=== PATIENT | male | born 2000 | race Caucasian/White ===

== ENCOUNTER 2022-04-25 11:29 | Emergency (ER) | payer SELFPAY ==
[~2022-04-25] VITALS: Ht 167.6 cm; Wt 63.5 kg
--- NOTE | 2022-04-25 11:40 | NUR ---
[id number] FOR "DOG BITE" . LACERATION ON LATERAL ASPECT OF LEFT KNEE NOTED WITH MINIMAL BLEEDING. 3-4CM IN LENGTH APPEARS TO BE WELL APPROXIMATED. 6/10 PAIN. PT BREATHING EVEN AND UNLABORED. AWAITING MD ORDERS.
[2022-04-25] MEDS ORDERED: TDAP [DIPH/PERTUSSIS/TET] 0.5 ML VIAL IM ONE ×2 (13:30→13:37)
[2022-04-25] MEDS ORDERED: AMOX-430 PO (14:21)
--- NOTE | 2022-04-25 14:38 | NUR ---
Patient discharged to home in stable condition. Written and verbal after care instructions given. Patient verbalizes understanding of instruction.
[2022-04-25 14:40] VITALS: BP 106/74
== END 2022-04-25 14:41 | disposition home or self-care (01) ==
LOC: ER 11:31
DX: S81.851A Open bite, right lower leg, initial encounter (principal); W54.0XXA Bitten by dog, initial encounter; Y93.89 Activity, other specified; Y92.89 Other specified places as the place of occurrence of the external cause; Y99.8 Other external cause status
CPT/HCPCS: 90715